=== PATIENT | male | born 1960 | race Caucasian/White ===

== ENCOUNTER 2024-09-18 10:42 | Outpatient (CLI) | payer MEDICARE, MEDICAID, SELFPAY ==
--- NOTE | 2024-09-18 10:45 | US_ITS ---
FINAL REPORT CLINICAL HISTORY: Leg pain. COMPARISON: None FINDINGS: ANKLE-BRACHIAL PRESSURE INDICES Pressure indices are as follows: RIGHT LOWER EXTREMITY: Ankle-brachial pressure index: 0.74 Comments: Moderately depressed ABIs. LEFT LOWER EXTREMITY: Ankle-brachial pressure index: 0.85 Comments: Mildly depressed ABIs. CONCLUSION: Mildly depressed ABIs consistent with mild arterial disease in the left lower extremity. Moderately depressed ABIs in the right lower extremity consistent with moderate arterial disease. Reviewed, Interpreted and Dictated by Mark Anthony Mcguire MD Transcribed by Marita Reveles Authenticated and [facility]
== END 2024-09-18 23:59 | disposition home or self-care (01) ==
LOC: RT 10:43
PROVIDERS: PCP Physician Assistant; Visit Provider Physician Assistant
DX: I73.9 Peripheral vascular disease, unspecified (principal); M79.606 Pain in leg, unspecified; R68.89 Other general symptoms and signs
CPT/HCPCS: 93923

== ENCOUNTER 2025-01-11 07:07 | Outpatient (CLI) | payer MEDICARE, MEDICAID, SELFPAY ==
--- NOTE | 2025-01-11 | CA_ITS ---
APPROVED REPORT Exam: Pharmacologic Technologist: Stephanie Arthur Stress Nurse: Vicky Venegas Ht: 5 ft 8 in Wt: 185 lbs BSA: 1.98 m2 HR: 61 bpm BP: 141/61 mmHg Rhythm: Sr PAC Medical History Medical History: Smoking Medications: Albuterol, Aspirin, Trelegy, Gabapentin, Isosorbide Mononitrate ER, Metoprolol Succinate ER, Omeprazole, Pravastatin, Pregabalin, Stiolto Allergies: No known drug allergies Cardiac Risk Factors: Smoking Stress Test Details Test: Lexiscan HR Resting HR: 61 bpm Max Heart Rate (APMHR): 158.759596 bpm Target HR (85% APMHR): 134.253681 bpm Recovery HR: 68 bpm BP Resting BP: 141.0/61.0 mmHg Max BP: 165.0/71.0 mmHg Recovery BP: 147.0/68.0 mmHg ECG Resting ECG: Sr PAC Stress ECG Conclusion Pt had dyspnea PAC Less than 0.5mm upsloping ST segment changes Nondiagnostic ECG/Lexiscan Electronically signed by : Jaymie Bran MD 01/11/2025 15:10:29
--- NOTE | 2025-01-11 07:00 | NM_ITS ---
APPROVED REPORT Exam: Nuclear Stress Test Indication: cp..soa..fatigue Patient Location: Outpatient Stress Tech: Stephanie Arthur OR Tech:Michell LenzringtonBRITTON RT(R)(N) Ht: 5 ft 8 in Wt: 180 lbs HR: 66 bpm BP: 165/71 mmHg BSA: 1.95 m2 TID: 1.17 BMI: 27.3 History: cp..soa..fatigue Procedure: Patient received 0.4 mg of intravenous Lexiscan, resting heart rate 66 bpm, resting blood pressure 165/71 mmHg, with Lexiscan maximum heart rate achieved was 95 bpm which is 85 % of the maximum predicted heart rate and blood pressure was 161/69 mmHg. With Lexiscan, patient denied any complaint of chest pain. Cardiac Stress and Resting SPECT Images: Cardiac Stress and Resting SPECT images were obtained using technetium 99m Myoview 32.2 mCi stress and 9.93 mCi at rest. Resting and stress imaging in supine and prone positions demonstrate no evidence of fixed or reversible perfusion defects. Gated imaging demonstrates normal global and regional LV systolic function. LVEF is calculated at 63%. Conclusion: No evidence of fixed or reversible perfusion defects. Gated imaging demonstrates normal global and regional LV systolic function. LVEF is calculated at 63%. Electronically signed by : Jaymie Bran MD 01/11/2025 15:10:17
[2025-01-11 08:30] VITALS: BP 141/61; PULSE 61; RESP 16
[2025-01-11] MEDS: ISOTOPE MYOVIEW (PER STUDY) 1 DOSE IV (08:36)
[2025-01-11] MEDS: SODIUM CHLORIDE 0.9% 10ML SYR (RAD ONLY) 10 ML IV ×2 (08:37)
== END 2025-01-11 23:59 | disposition home or self-care (01) ==
LOC: RAD 07:08
PROVIDERS: PCP Physician Assistant; Visit Provider Nurse Practitioner
DX: I49.1 Atrial premature depolarization (principal); R53.83 Other fatigue
CPT/HCPCS: 78452; 93017; 93018; A9502; J2785

== ENCOUNTER 2025-01-18 08:38 | Outpatient (CLI) | payer MEDICARE, MEDICAID, SELFPAY ==
--- NOTE | 2025-01-18 08:45 | CA_ITS ---
FINAL REPORT TECHNIQUE: Compression marshall scale and Doppler evaluation CLINICAL HISTORY: EDEMA RLE FINDINGS: Femoral and popliteal veins show normal compressibility and flow. Visualized portion of the calf veins are patent by Doppler exam. IMPRESSION: No evidence of right lower extremity deep venous thrombosis Reviewed, Interpreted and Dictated by Anisha Hernandez MD Transcribed by Ivette Starr Authenticated and [facility]
== END 2025-01-18 23:59 | disposition home or self-care (01) ==
LOC: RT 08:39
PROVIDERS: PCP Physician Assistant; Visit Provider Nurse Practitioner
DX: I73.9 Peripheral vascular disease, unspecified (principal); R06.00 Dyspnea, unspecified; R07.89 Other chest pain; I82.409 Acute embolism and thrombosis of unspecified deep veins of unspecified lower extremity; M79.89 Other specified soft tissue disorders
CPT/HCPCS: 93971

== ENCOUNTER 2025-03-20 09:34 | Outpatient (CLI) | payer MEDICARE, MEDICAID, SELFPAY ==
--- NOTE | 2025-03-20 09:40 | CT_ITS ---
FINAL REPORT TECHNIQUE: Routine axial images were obtained from the lung apices to below the diaphragm following IV contrast administration. Individualized dose reduction techniques using automated exposure control or adjustment of the mA and/or kV according to the patient size were employed. CLINICAL HISTORY: MALIGNANT NEOPLASM OF MOUTH COMPARISON: None FINDINGS: There is mild dependent edema at the lung bases. Mild scarring is noted at the lung bases. No pleural or pericardial effusion is seen. No adenopathy or mass lesion is present. Limited images of the upper abdomen demonstrate diffuse fatty infiltration of the liver. Multiple gallstones are noted in the gallbladder. IMPRESSION: Advanced changes of centrilobular emphysema. Gallstones. Reviewed, Interpreted and Dictated by Mark Anthony Mcguire MD Transcribed by Ivette Starr Authenticated and [facility]
--- NOTE | 2025-03-20 09:40 | CT_ITS ---
FINAL REPORT TECHNIQUE: Thin section axial CT images with coronal and sagittal reformats were performed after the administration of IV contrast. This study was performed with techniques to keep radiation doses as low as reasonably achievable (ALARA). Individualized dose reduction techniques using automated exposure control or adjustment of mA and/or kV according to the patient''s size were employed. CLINICAL HISTORY: MALIGNANT NEOPLASM OF MOUTH COMPARISON: None FINDINGS: Dense calcifications are noted at the carotid bifurcations. No significant cervical mass or adenopathy identified. No evidence of inflammatory reaction or fluid collection. The paranasal sinuses are well aerated. IMPRESSION: No acute findings. Reviewed, Interpreted and Dictated by Mark Anthony Mcguire MD Transcribed by Ivette Starr Authenticated and [facility]
[2025-03-20 10:05] LABS: Blood Urea Nitrogen 16 mg/dl (9-20); Creatinine,Serum 1.00 mg/dl (0.66-1.25); Estimated Glomerular Filt Rate 76 ml/min (>60); GFR (African American) 92 ML/MIN (>60)
[2025-03-20] MEDS: IOPAMIDOL-370 (76%);100ML BOTTLE 75 ML IV (10:35)
[2025-03-20] MEDS: SODIUM CHLORIDE 0.9% 10ML SYR (RAD ONLY) 10 ML IV (10:35)
== END 2025-03-20 23:59 | disposition home or self-care (01) ==
LOC: RAD 09:35
PROVIDERS: PCP Physician Assistant; Visit Provider Dentist Oral and Maxillofacial Surgery
DX: C06.9 Malignant neoplasm of mouth, unspecified (principal); J43.2 Centrilobular emphysema; K80.20 Calculus of gallbladder without cholecystitis without obstruction
CPT/HCPCS: 36415; 70491; 71260; 82565; 84520; Q9967